=== PATIENT | female | born 1975 | race Caucasian/White ===

== ENCOUNTER 2018-07-09 11:21 | Observation (INO) ==
[~2018-07-09 11:21] MED LIST: LIDOCAINE W/ SODIUM BICARB 0.5 ML SYR ONE; LIDOCAINE W/ SODIUM BICARB 0.5 ML SYR SUBD ONE; Lactated Ringers 1,000 ML PRIMARY IV ONE; Nasal Sanitizer POPSWAB ampule 3 AMP (Nozin) PREOP DOSE ENOS SCH; Sodium Chloride 0.9% 250 ML ONE; Vancomycin Inj 1gm vial ONE; ceFAZolin Inj 2gm (Premix) 2 GM/50 ML BAG IV ONE
[2018-07-09] MEDS ORDERED: BUPIVACAINE 0.25% W/ EPI - 10 ML VIAL ONE ×2 (15:31→15:33)
[2018-07-09] MEDS ORDERED: Sodium Chloride 0.9% vial 10 ML ONE (15:31)
[2018-07-09] MEDS ORDERED: BACITRACIN 50,000 UNIT VIAL IRRIG ONE (15:31)
[2018-07-09] MEDS ORDERED: KETOROLAC 30 MG/1 ML VIAL ONE (15:59)
[2018-07-09] MEDS ORDERED: ONDANSETRON 4 MG/2 ML VIAL ONE (15:59)
[2018-07-09] MEDS ORDERED: PROPOFOL 10 MG/1 ML (200 MG/20 ML) VIAL IV ONE (15:59)
[2018-07-09] MEDS ORDERED: BUPivacaine Liposome/PF (Exparel) Inj 20ml vial INFIL ONE (16:59)
--- NOTE | 2018-07-09 18:27 | CRNA.PROGR ---
Anesthesia Time - Procedure/Recovery Time Start Date: 07/09/18 End Date: 07/09/18 Anesthesia : Time In: 15:44 Anesthesia : Time Out: 18:27 Anesthesia : Total Time: 163 - Total Anesthesia Time Total Anesthesia Time (minutes): 163 - Other Weight: 74.843 kg Height: 5 ft 7 in Body Mass Index (BMI): 25.8 Physical Status: P3 (Stable at pt handoff PACU) Anesthesia Type: General Anesthesia : ET
[2018-07-09] MEDS ORDERED: fentaNYL Inj 100 MCG/2 ML VIAL IVP PRN (18:28)
[2018-07-09] MEDS ORDERED: LIDOCAINE W/ SODIUM BICARB 0.5 ML SYR SUBD PRN (18:28)
[2018-07-09] MEDS ORDERED: ONDANSETRON 4 MG/2 ML VIAL IVP PRN ×2 (18:28→19:18)
[2018-07-09] MEDS ORDERED: Prochlorperazine Edisylate Inj 10mg/2ml vial IVP PRN ×2 (18:28→19:18)
--- NOTE | 2018-07-09 18:28 | CRNA.PROGR ---
Anesthesia Recovery Phase I - Post Anesthesia Evaluation Patient's Condition on Arrival in Phase I: Stable Patient's Condition on Arrival in Phase II: Stable Pain Level: 3 (stable at patient report and handoff PACU)
[2018-07-09] MEDS ORDERED: MAGNESIUM CITRATE 296 ML SOLUTION PO PRN (19:18)
[2018-07-09] MEDS ORDERED: HYDROcodone-APAP 7.5 MG-325 MG TABLET PO PRN (19:18)
[2018-07-09] MEDS ORDERED: DIAZEPAM 10 MG/2 ML (5 MG/1 ML) CARPUJECT IVP PRN (19:18)
[2018-07-09] MEDS ORDERED: ceFAZolin Inj 1 GM in Sodium Chloride 0.9% 100 ML IV SCH (19:18)
[2018-07-09] MEDS ORDERED: DIAZEPAM 5 MG TABLET PO PRN (19:18)
[2018-07-09] MEDS ORDERED: MORPHINE SULFATE 2 MG/1 ML IVP PRN (19:18)
[2018-07-09] MEDS ORDERED: DOCUSATE 100 MG CAPSULE PO PRN (19:18)
[2018-07-09] MEDS ORDERED: PROMETHAZINE 25 MG/1 ML VIAL IM PRN (19:18)
[2018-07-09] MEDS ORDERED: Vancomycin-PHA to Dose IV SCH (19:18)
[2018-07-09] MEDS ORDERED: HYDROcodone-APAP 5 MG -325 MG TABLET PO PRN (19:18)
[2018-07-09] MEDS ORDERED: Metoclopramide Inj 10 MG/2 ML VIAL IVP PRN (19:18)
[2018-07-09] MEDS ORDERED: Ondansetron ODT Tab 4 MG TAB PO PRN (19:18)
[2018-07-09] MEDS ORDERED: MAGNESIUM 400 MG/5 ML - 30 ML (MILK OF MAGNESIA) PO PRN (19:18)
[2018-07-09] MEDS ORDERED: Fleet Enema 133ml RECTAL PRN (19:18)
[2018-07-09] MEDS ORDERED: HYDROcodone-APAP 10 MG-325 MG TABLET PO PRN (19:18)
[2018-07-09] MEDS ORDERED: BISACODYL 5 MG TABLET PO PRN (19:18)
[2018-07-09] MEDS ORDERED: Esomeprazole DR 20mg Capsule PO SCH (19:18)
[2018-07-09 20:31] VITALS: BP 100/63; RESP 16; TEMP 96.9; O2SAT 98
[2018-07-10] MEDS ORDERED: PANTOPRAZOLE 40 MG TABLET PO SCH (07:00)
[2018-07-10] MEDS ORDERED: Sertraline Tab 50 MG TAB PO SCH (09:00)
[2018-07-10] MEDS ORDERED: ESTROGENS CONJUGATED 0.3 MG PO SCH (09:00)
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
== END 2018-07-09 20:50 | disposition home or self-care (01) ==
LOC: OR 11:21 → MED/SURG 11:21
PROVIDERS: ADMIT Neurological Surgery; ATTEND Neurological Surgery